=== PATIENT | male | born 1945 | race Caucasian/White ===

== ENCOUNTER 2021-06-23 08:06 | Outpatient (CLI) | payer MEDICARE, OTHER ==
[2021-06-23 10:18] LABS: Hemoglobin 14.1 g/dL (13.5-17.5); Mean Corpuscular HGB CONC 32.5 g/dL (32.0-36.0); Mean Corpuscular Hemoglobin 27.4 pg (27.0-33.0); Mean Corpuscular Volume 84.3 fl (81.2-95.1); Mean Platelet Volume 9.9 fl (7.4-10.4); Platelet Count 275 10x3/uL (150-450); RBC Distribution Width 14.8 % (11.5-14.5); Red Blood Cell (RBC) Count 5.15 10x6/uL (4.32-5.72)
[2021-06-23 10:36] LABS: PTT 26.9 sec (22.0-33.0); Prothrombin Time 11.1 sec (9.5-12.1)
[2021-06-23 10:38] LABS: Anion Gap 14 mmol/L (10-20); BUN (Urea Nitrogen) 21 mg/dL (8.4-25.7); Calc. Creatinine Clearance 0 mL/min (70-130); Calcium 9.9 mg/dL (7.8-10.44); Carbon Dioxide 28 mmol/L (23-31); Chloride 101 mmol/L (98-107); Glucose 85 mg/dL (83-110); Potassium 4.6 mmol/L (3.5-5.1); Sodium 138 mmol/L (136-145)
[2021-06-24] LABS: SARS-CoV-2 PCR by NAA Not Detected (NotDetected)
== END 2021-06-23 08:07 | disposition home or self-care (01) ==
LOC: LABBT 08:06
PROVIDERS: ATTEND Surgery
DX: Z01.818 Encounter for other preprocedural examination (principal); Z20.822 Contact with and (suspected) exposure to COVID-19
CPT/HCPCS: 80048; 85027; 85610; 85730; 93005; U0003; U0005; 93010

== ENCOUNTER 2021-06-27 05:44 | Inpatient (IN) | payer OTHER ==
[2021-06-27] MEDS ORDERED: Thrombin 5000 UNITS/5 ML VIAL ONE ×2 (06:48→09:36)
[2021-06-27] MEDS ORDERED: Clindamycin/D5W 900 mg/50 ml Premix Bag ONE (07:21)
[2021-06-27] MEDS ORDERED: Levofloxacin 500 mg/D5W 100 ml Premix Bag ONE (07:21)
[2021-06-27] MEDS ORDERED: Fentanyl 100 MCG/2 ML VIAL ONE ×3 (07:31→11:27)
[2021-06-27] MEDS ORDERED: Glycopyrrolate 0.2 MG/ML 5 ML SYRINGE ONE (07:58)
[2021-06-27] MEDS ORDERED: Dexamethasone 20 MG/5 ML VIAL ONE (07:58)
[2021-06-27] MEDS ORDERED: Lidocaine 1% PF 5 ML VIAL ONE (07:58)
[2021-06-27] MEDS ORDERED: ePHEDrine 50 MG/ML VIAL ONE (07:58)
[2021-06-27] MEDS ORDERED: PROPOFOL 200 MG/20 ML VIAL ONE (07:58)
[2021-06-27] MEDS ORDERED: Rocuronium Bromide 10 MG/ML (10ML VIAL) ONE (07:58)
[2021-06-27] MEDS ORDERED: Ondansetron PF 4 MG/2 ML Vial ONE (07:58)
[2021-06-27] MEDS ORDERED: HYDROmorphone 2 MG/ML VIAL SLOW IVP PRN (08:47)
[2021-06-27] MEDS ORDERED: Promethazine HCl 25 MG/ML VIAL IM PRN (08:47)
[2021-06-27] MEDS ORDERED: Ondansetron HCl/PF 4 MG/2 ML Vial IVP PRN (08:47)
[2021-06-27] MEDS ORDERED: Meperidine HCl/PF 25 MG/ML VIAL SLOW IVP PRN (08:47)
[2021-06-27] MEDS ORDERED: Promethazine HCl 25 MG/ML VIAL IVPB PRN (08:47)
[2021-06-27] MEDS ORDERED: Midazolam HCl 2 mg/2 ml Vial ONE (12:36)
[2021-06-27] MEDS ORDERED: tiZANidine HCl 4 MG TAB ONE (12:46)
[2021-06-27] MEDS ORDERED: HYDROcodone/Acetaminophen 5/325 mg Tablet ONE (13:08)
[2021-06-27] MEDS ORDERED: Morphine 2 MG/ML VIAL SLOW IVP PRN (15:25)
[2021-06-27] MEDS ORDERED: traMADol HCl 50 MG TAB PO PRN (15:25)
[2021-06-27] MEDS ORDERED: Acetaminophen 325 MG TAB PO PRN (15:25)
[2021-06-27] MEDS ORDERED: Mag-Al 1200 mg/1200 mg/30 ML UDCUP PO PRN (15:25)
[2021-06-27] MEDS ORDERED: tiZANidine HCl 4 MG TAB PO PRN (15:25)
[2021-06-27] MEDS ORDERED: Promethazine HCl 12.5 MG in Sodium Chloride 0.9% 50 ML IVPB PRN (15:32)
[2021-06-27] MEDS ORDERED: Diazepam 10 MG/2 ML SYRINGE IVP SCH ×2 (15:45→19:00)
[2021-06-27] MEDS ORDERED: Ketorolac Tromethamine 30 MG/ML VIAL IVP SCH (15:45)
[2021-06-27] MEDS ORDERED: Dexamethasone 4 mg/ml Vial SLOW IVP SCH (16:10)
[2021-06-27] MEDS ORDERED: Dexamethasone 4 mg/ml Vial ONE (16:22)
[2021-06-27] MEDS ORDERED: Ketorolac Tromethamine 30 MG/ML VIAL ONE (17:02)
[2021-06-27] MEDS ORDERED: Diazepam 5 MG TAB ONE (17:25)
[2021-06-27] MEDS: Sodium Chloride 0.9% 1,000 ML IV SCH (19:38)
[2021-06-27] MEDS: Clindamycin/D5W 900 MG in Premix Bag 1 BAG IVPB SCH (20:09)
[2021-06-27] MEDS ORDERED: Zolpidem Tartrate 5 MG TAB PO SCH (23:30)
[2021-06-28] MEDS: Diazepam 5 MG TAB PO PRN ×3 (00:55→21:39)
[2021-06-28] MEDS: HYDROcodone/Acetaminophen 7.5/325 mg Tablet PO PRN ×4 (02:21→21:39)
[2021-06-28] MEDS: Clindamycin/D5W 900 MG in Premix Bag 1 BAG IVPB SCH (04:29)
[2021-06-28] MEDS: Sodium Chloride 0.9% 1,000 ML IV SCH ×2 (06:33→19:31)
[2021-06-28] MEDS: Hydrochlorothiazide 25 MG TAB PO SCH (08:33)
[2021-06-28] MEDS: Atorvastatin Calcium 20 MG TAB PO SCH (08:33)
[2021-06-28] MEDS: Losartan 25 MG TAB PO SCH (08:33)
[2021-06-28] MEDS: Ketorolac Tromethamine 30 MG/ML VIAL IVP PRN ×2 (08:34→21:39)
[2021-06-28] MEDS: predniSONE 20 MG TAB PO SCH (08:39)
[2021-06-28] MEDS: Morphine 2 MG/ML VIAL SLOW IVP PRN (19:23)
[2021-06-29] MEDS: Morphine 2 MG/ML VIAL SLOW IVP PRN ×5 (02:59→23:00)
[2021-06-29] MEDS: Ketorolac Tromethamine 30 MG/ML VIAL IVP PRN ×3 (04:04→20:06)
[2021-06-29] MEDS: HYDROcodone/Acetaminophen 7.5/325 mg Tablet PO PRN ×3 (04:04→20:05)
[2021-06-29] MEDS: Diazepam 5 MG TAB PO PRN ×3 (04:05→20:04)
[2021-06-29] MEDS: Hydrochlorothiazide 25 MG TAB PO SCH (09:10)
[2021-06-29] MEDS: Atorvastatin Calcium 20 MG TAB PO SCH (09:10)
[2021-06-29] MEDS: Losartan 25 MG TAB PO SCH (09:10)
[2021-06-29] MEDS: Docusate 100 MG CAP PO SCH ×2 (09:10→20:05)
[2021-06-29] MEDS: Sodium Chloride 0.9% 1,000 ML IV SCH ×2 (09:11→21:32)
[2021-06-29] MEDS: Acetaminophen/Codeine 30-300mg Tablet PO PRN (12:29)
[2021-06-29] MEDS: Dexamethasone 4 MG TAB PO SCH ×2 (16:00→20:06)
[2021-06-30] MEDS: Morphine 2 MG/ML VIAL SLOW IVP PRN ×6 (00:08→23:14)
[2021-06-30] MEDS: Acetaminophen/Codeine 30-300mg Tablet PO PRN ×2 (00:19→04:04)
[2021-06-30] MEDS: HYDROcodone/Acetaminophen 7.5/325 mg Tablet PO PRN ×2 (02:03→07:52)
[2021-06-30] MEDS: Dexamethasone 4 MG TAB PO SCH ×2 (02:03→07:52)
[2021-06-30] MEDS: Diazepam 5 MG TAB PO PRN ×4 (04:05→21:34)
[2021-06-30] MEDS: Hydrochlorothiazide 25 MG TAB PO SCH (07:51)
[2021-06-30] MEDS: Atorvastatin Calcium 20 MG TAB PO SCH (07:51)
[2021-06-30] MEDS: Losartan 25 MG TAB PO SCH (07:51)
[2021-06-30] MEDS: Docusate 100 MG CAP PO SCH ×2 (07:52→21:34)
[2021-06-30] MEDS: predniSONE 20 MG TAB PO SCH (09:48)
[2021-06-30] MEDS ORDERED: HYDROcodone/Acetaminophen 10/325 mg Tablet PO PRN (11:08)
[2021-06-30] MEDS ORDERED: Polyethylene Glycol 3350 17 GM Packet PO PRN (11:08)
[2021-06-30] MEDS ORDERED: fentaNYL 50 mcg/hour Patch TD SCH (11:15)
[2021-06-30] MEDS: HYDROcodone/Acetaminophen 10/325 mg Tablet PO PRN ×2 (13:07→18:51)
[2021-06-30] MEDS: Sodium Chloride 0.9% 1,000 ML IV SCH (13:49)
[2021-06-30] MEDS: Dexamethasone 1 MG TAB PO SCH ×2 (14:46→21:34)
[2021-06-30] MEDS ORDERED: Labetalol HCl 100 MG/20 ML VIAL SLOW IVP PRN (22:06)
[2021-06-30] MEDS: hydrALAZINE 20 MG/ML VIAL SLOW IVP PRN (22:10)
[2021-06-30] MEDS ORDERED: diphenhydrAMINE 50 MG/ML VIAL IM/IV PRN (23:45)
[2021-06-30] MEDS ORDERED: Ondansetron PF 4 MG/2 ML Vial IVP PRN (23:45)
[2021-06-30] MEDS ORDERED: Zolpidem Tartrate 5 MG TAB PO PRN (23:45)
[2021-06-30] MEDS ORDERED: diphenhydrAMINE 25 MG CAP PO PRN (23:45)
[2021-06-30] MEDS ORDERED: Promethazine HCl 25 MG/ML VIAL IM PRN (23:45)
[2021-06-30] MEDS ORDERED: Naloxone HCl 0.4 mg/ml Vial IV PRN (23:45)
[2021-07-01] MEDS: HYDROmorphone 10 MG in Sodium Chloride 0.9% 95 ML IVPB PRN ×2 (00:34→20:12)
[2021-07-01] MEDS: Sodium Chloride 0.9% 1,000 ML IV SCH ×2 (02:45→18:53)
[2021-07-01] MEDS: Dexamethasone 1 MG TAB PO SCH ×4 (03:44→20:02)
[2021-07-01] MEDS ORDERED: Bisacodyl 10 MG SUPP PR PRN (07:25)
[2021-07-01] MEDS: Hydrochlorothiazide 25 MG TAB PO SCH (08:59)
[2021-07-01] MEDS: Pregabalin 75 MG CAP PO SCH ×2 (09:00→20:02)
[2021-07-01] MEDS: Losartan 25 MG TAB PO SCH (09:00)
[2021-07-01] MEDS: Atorvastatin Calcium 20 MG TAB PO SCH (09:00)
[2021-07-01] MEDS: Docusate 100 MG CAP PO SCH ×2 (09:01→20:02)
[2021-07-01] MEDS: Polyethylene Glycol 3350 17 GM Packet PO SCH (09:01)
[2021-07-01] MEDS: hydrALAZINE 20 MG/ML VIAL SLOW IVP PRN ×2 (12:23→20:03)
[2021-07-01] MEDS: Diazepam 5 MG TAB PO PRN (22:05)
[2021-07-02] MEDS: Sodium Chloride 0.9% 1,000 ML IV SCH ×2 (02:29→17:24)
[2021-07-02] MEDS: Dexamethasone 1 MG TAB PO SCH ×4 (02:46→20:54)
[2021-07-02] MEDS: hydrALAZINE 20 MG/ML VIAL SLOW IVP PRN (04:07)
[2021-07-02] MEDS: Hydrochlorothiazide 25 MG TAB PO SCH (08:23)
[2021-07-02] MEDS: Losartan 25 MG TAB PO SCH (08:23)
[2021-07-02] MEDS: Atorvastatin Calcium 20 MG TAB PO SCH (08:23)
[2021-07-02] MEDS: Pregabalin 75 MG CAP PO SCH ×2 (08:24→20:55)
[2021-07-02] MEDS: Docusate 100 MG CAP PO SCH ×2 (08:25→20:54)
[2021-07-02] MEDS: Polyethylene Glycol 3350 17 GM Packet PO SCH (08:25)
[2021-07-02] MEDS: predniSONE 20 MG TAB PO SCH (14:40)
[2021-07-02] MEDS: Diazepam 5 MG TAB PO PRN (21:58)
[2021-07-03] MEDS: hydrALAZINE 20 MG/ML VIAL SLOW IVP PRN (00:29)
[2021-07-03] MEDS: Dexamethasone 1 MG TAB PO SCH ×2 (03:15→09:45)
[2021-07-03] MEDS: Sodium Chloride 0.9% 1,000 ML IV SCH ×2 (04:30→17:50)
[2021-07-03] MEDS ORDERED: HYDROcodone/Acetaminophen 7.5/325 mg Tablet PO PRN (09:41)
[2021-07-03] MEDS ORDERED: Morphine 2 MG/ML VIAL SLOW IVP PRN (09:41)
[2021-07-03] MEDS: Atorvastatin Calcium 20 MG TAB PO SCH (09:44)
[2021-07-03] MEDS: Losartan 25 MG TAB PO SCH (09:44)
[2021-07-03] MEDS: Hydrochlorothiazide 25 MG TAB PO SCH (09:44)
[2021-07-03] MEDS: Pregabalin 75 MG CAP PO SCH ×2 (09:45→20:52)
[2021-07-03] MEDS: Docusate 100 MG CAP PO SCH ×2 (09:46→20:53)
[2021-07-03] MEDS: Polyethylene Glycol 3350 17 GM Packet PO SCH (09:47)
[2021-07-03] MEDS: predniSONE 20 MG TAB PO SCH (09:47)
[2021-07-03] MEDS: HYDROcodone/Acetaminophen 7.5/325 mg Tablet PO PRN (23:05)
[2021-07-03] MEDS: Diazepam 5 MG TAB PO PRN (23:05)
[2021-07-04] MEDS: Diazepam 5 MG TAB PO PRN ×2 (03:51→21:57)
[2021-07-04] MEDS: HYDROcodone/Acetaminophen 7.5/325 mg Tablet PO PRN ×4 (03:51→21:57)
[2021-07-04] MEDS: Sodium Chloride 0.9% 1,000 ML IV SCH ×2 (06:55→22:03)
[2021-07-04] MEDS: Losartan 25 MG TAB PO SCH (08:57)
[2021-07-04] MEDS: Atorvastatin Calcium 20 MG TAB PO SCH (08:57)
[2021-07-04] MEDS: Hydrochlorothiazide 25 MG TAB PO SCH (08:57)
[2021-07-04] MEDS: Pregabalin 75 MG CAP PO SCH ×2 (08:57→20:27)
[2021-07-04] MEDS: Polyethylene Glycol 3350 17 GM Packet PO SCH (08:58)
[2021-07-04] MEDS: Docusate 100 MG CAP PO SCH ×2 (08:58→20:27)
[2021-07-04] MEDS ORDERED: fentaNYL 50 mcg/hour Patch TD SCH (11:00)
[2021-07-04] MEDS ORDERED: Morphine 2 MG/ML VIAL SLOW IVP PRN (11:03)
[2021-07-05] MEDS: Hydrochlorothiazide 25 MG TAB PO SCH (09:04)
[2021-07-05] MEDS: Docusate 100 MG CAP PO SCH (09:04)
[2021-07-05] MEDS: Atorvastatin Calcium 20 MG TAB PO SCH (09:04)
[2021-07-05] MEDS: Losartan 25 MG TAB PO SCH (09:04)
[2021-07-05] MEDS: Pregabalin 75 MG CAP PO SCH (09:05)
[2021-07-05] MEDS: Polyethylene Glycol 3350 17 GM Packet PO SCH (09:06)
[2021-07-05] MEDS: predniSONE 20 MG TAB PO SCH (09:15)
[2021-07-05] MEDS: HYDROcodone/Acetaminophen 7.5/325 mg Tablet PO PRN ×2 (09:15→13:24)
[2021-07-05 12:24] VITALS: BP 146/86; TEMP 98
== END 2021-07-05 13:44 | disposition home or self-care (01) | DRG 520 ==
LOC: SDC 05:44 → SURG A 15:25 → OBSVTOIN 06-29 08:28
PROVIDERS: ADMIT Surgery; ATTEND Surgery
PROC: 01NB0ZZ Release Lumbar Nerve, Open Approach (ICD-10-PCS; principal; 2021-06-29)
PROC: 0SB20ZZ Excision of Lumbar Vertebral Disc, Open Approach (ICD-10-PCS; 2021-06-29)
DX: M51.16 Intervertebral disc disorders with radiculopathy, lumbar region (principal); M48.062 Spinal stenosis, lumbar region with neurogenic claudication; M43.16 Spondylolisthesis, lumbar region; Z20.822 Contact with and (suspected) exposure to COVID-19; K64.8 Other hemorrhoids; K57.90 Diverticulosis of intestine, part unspecified, without perforation or abscess without bleeding; I10 Essential (primary) hypertension; E78.5 Hyperlipidemia, unspecified; E66.9 Obesity, unspecified; Z88.0 Allergy status to penicillin; Z68.38 Body mass index [BMI] 38.0-38.9, adult; Z79.52 Long term (current) use of systemic steroids; Z79.82 Long term (current) use of aspirin; Z79.899 Other long term (current) drug therapy
CPT/HCPCS: 74176; 76000; 93970; 94760; 96365; 96366; 96375; 96376; G0378; J0360; J1100; J1170; J1885; J1956; J2250; J2270; J2405; J2704; J3010; J3360; J3370; J3490; J7512; J8540

== ENCOUNTER 2022-06-25 09:21 | Outpatient (CLI) | payer BC | END 2022-06-25 09:22 | disposition home or self-care (01) | LOC: SCSRAD 09:21 | PROVIDERS: ATTEND Specialist | DX: M51.16 Intervertebral disc disorders with radiculopathy, lumbar region (principal) | CPT/HCPCS: 72120 ==

== ENCOUNTER 2022-07-05 14:47 | Outpatient (CLI) | payer BC ==
[2022-07-05 16:46] LABS: Hemoglobin 14.9 g/dL (13.5-17.5); Mean Corpuscular HGB CONC 32.5 g/dL (32.0-36.0); Mean Corpuscular Hemoglobin 26.1 pg (27.0-33.0); Mean Corpuscular Volume 80.4 fl (81.2-95.1); Mean Platelet Volume 9.7 fl (7.4-10.4); Platelet Count 320 10x3/uL (150-450); RBC Distribution Width 16.1 % (11.5-14.5); White Blood Cell (WBC) Count 11.3 10x3/uL (3.5-10.5)
[2022-07-05 17:01] LABS: Anion Gap 15 mmol/L (10-20); BUN (Urea Nitrogen) 23 mg/dL (8.4-25.7); Calc. Creatinine Clearance 0 mL/min (70-130); Calcium 9.8 mg/dL (7.8-10.44); Carbon Dioxide 27 mmol/L (23-31); Chloride 97 mmol/L (98-107); Estimated GFR 78; Glucose 112 mg/dL (83-110); Sodium 134 mmol/L (136-145)
[2022-07-05 17:03] LABS: PTT 27.8 sec (22.0-33.0); Prothrombin Time 10.8 sec (9.5-12.1)
== END 2022-07-05 14:48 | disposition home or self-care (01) ==
LOC: LABBT 14:47
PROVIDERS: ATTEND Surgery
DX: Z01.818 Encounter for other preprocedural examination (principal); M51.16 Intervertebral disc disorders with radiculopathy, lumbar region; Z20.822 Contact with and (suspected) exposure to COVID-19
CPT/HCPCS: 80048; 85027; 85610; 85730; 87811; 93005; 93010

== ENCOUNTER 2022-07-06 07:55 | Inpatient (IN) | payer BC, MEDICARE ==
[2022-07-05 14:28] VITALS: BMI 37.4
[2022-07-06] MEDS ORDERED: Thrombin 5000 UNITS/5 ML VIAL ONE (08:41)
[2022-07-06] MEDS ORDERED: Levofloxacin 500 mg/D5W 100 ml Premix Bag ONE (09:00)
[2022-07-06] MEDS ORDERED: HYDROmorphone 0.5 MG/0.5 ML SYRINGE ONE (09:44)
[2022-07-06] MEDS ORDERED: Dexmedetomidine 200 MCG/2 ML VIAL ONE (09:45)
[2022-07-06] MEDS ORDERED: fentaNYL Citrate/PF 100 MCG/2 ML SYRINGE ONE (09:45)
[2022-07-06] MEDS ORDERED: Ketamine 50 MG/ML (10ML VIAL) ONE (09:45)
[2022-07-06] MEDS ORDERED: Clindamycin/D5W 900 mg/50 ml Premix Bag ONE (09:53)
[2022-07-06] MEDS ORDERED: Ketorolac Tromethamine 30 MG/ML VIAL IVP PRN (09:58)
[2022-07-06] MEDS ORDERED: traMADol HCl 50 MG TAB PO PRN (09:58)
[2022-07-06] MEDS ORDERED: Ondansetron PF 4 MG/2 ML Vial IVP PRN (09:58)
[2022-07-06] MEDS ORDERED: diphenhydrAMINE 25 MG CAP PO PRN (09:58)
[2022-07-06] MEDS ORDERED: HYDROcodone/Acetaminophen 7.5/325 mg Tablet PO PRN ×2 (09:58)
[2022-07-06] MEDS ORDERED: Acetaminophen 325 MG TAB PO PRN (09:58)
[2022-07-06] MEDS ORDERED: Fentanyl 100 MCG/2 ML VIAL SLOW IVP PRN (10:07)
[2022-07-06] MEDS ORDERED: HYDROcodone/Acetaminophen 10/325 mg Tablet PO PRN (10:07)
[2022-07-06] MEDS ORDERED: Promethazine HCl 12.5 MG in Sodium Chloride 0.9% 50 ML IVPB PRN (10:09)
[2022-07-06] MEDS ORDERED: PROPOFOL 200 MG/20 ML VIAL ONE (10:10)
[2022-07-06] MEDS ORDERED: ePHEDrine 50 MG/ML VIAL ONE (10:10)
[2022-07-06] MEDS ORDERED: Lidocaine 1% MPF 2 ML VIAL ONE (10:10)
[2022-07-06] MEDS ORDERED: Rocuronium Bromide 10 MG/ML (10ML VIAL) ONE (10:10)
[2022-07-06] MEDS ORDERED: Ondansetron PF 4 MG/2 ML Vial ONE (10:10)
[2022-07-06] MEDS ORDERED: hydrALAZINE 20 MG/ML VIAL SLOW IVP PRN (10:10)
[2022-07-06] MEDS ORDERED: predniSONE 20 MG TAB PO SCH (10:15)
[2022-07-06] MEDS ORDERED: SUGAMMADEX SODIUM 200 MG/2 ML VIAL ONE (12:15)
[2022-07-06] MEDS ORDERED: Ondansetron HCl/PF 4 MG/2 ML Vial IVP PRN (12:50)
[2022-07-06] MEDS ORDERED: Promethazine HCl 25 MG/ML VIAL IVPB PRN (12:50)
[2022-07-06] MEDS ORDERED: Promethazine HCl 25 MG/ML VIAL IM PRN (12:50)
[2022-07-06] MEDS ORDERED: Fentanyl 100 MCG/2 ML VIAL ONE ×2 (12:57→13:22)
[2022-07-06] MEDS: Pregabalin 50 MG CAP PO SCH ×2 (14:54→20:50)
[2022-07-06] MEDS: Sodium Chloride 0.9% 1,000 ML IV SCH (14:58)
[2022-07-06] MEDS: Clindamycin/D5W 900 MG in Premix Bag 1 BAG IVPB SCH (18:35)
[2022-07-06] MEDS: HYDROcodone/Acetaminophen 10/325 mg Tablet PO PRN (20:49)
[2022-07-07] MEDS: Sodium Chloride 0.9% 1,000 ML IV SCH ×2 (01:26→12:16)
[2022-07-07] MEDS: Clindamycin/D5W 900 MG in Premix Bag 1 BAG IVPB SCH (01:59)
[2022-07-07] MEDS: Pregabalin 50 MG CAP PO SCH ×3 (08:49→19:55)
[2022-07-07] MEDS: Hydrochlorothiazide 25 MG TAB PO SCH (08:50)
[2022-07-07] MEDS: Atorvastatin Calcium 20 MG TAB PO SCH (08:50)
[2022-07-07] MEDS: HYDROcodone/Acetaminophen 10/325 mg Tablet PO PRN ×3 (08:50→18:06)
[2022-07-07] MEDS: Losartan 25 MG TAB PO SCH (08:50)
[2022-07-07] MEDS ORDERED: Non-Formulary Item 1 EACH (Losartan Potassium [Losartan Potassium] 100 MG Tablet) PO SCH (09:00)
[2022-07-07] MEDS ORDERED: Diazepam 5 MG TAB PO PRN (10:37)
[2022-07-07] MEDS: tiZANidine HCl 4 MG TAB PO PRN ×2 (12:15→19:56)
[2022-07-08] MEDS: Sodium Chloride 0.9% 1,000 ML IV SCH (02:06)
[2022-07-08] MEDS: tiZANidine HCl 4 MG TAB PO PRN (06:01)
[2022-07-08] MEDS: HYDROcodone/Acetaminophen 10/325 mg Tablet PO PRN (06:02)
[2022-07-08] MEDS: Pregabalin 50 MG CAP PO SCH (08:08)
[2022-07-08] MEDS: Losartan 25 MG TAB PO SCH (08:08)
[2022-07-08] MEDS: Atorvastatin Calcium 20 MG TAB PO SCH (08:08)
[2022-07-08] MEDS: Hydrochlorothiazide 25 MG TAB PO SCH (08:09)
[2022-07-08 11:47] VITALS: BP 135/75; TEMP 98.1
== END 2022-07-08 11:42 | disposition home or self-care (01) | DRG 520 ==
LOC: SDC 07:55 → SURG A 13:50 → OBSVTOIN 07-07 10:38
PROVIDERS: ADMIT Surgery; ATTEND Surgery
PROC: 0SB20ZZ Excision of Lumbar Vertebral Disc, Open Approach (ICD-10-PCS; principal; 2022-07-06)
DX: M51.26 Other intervertebral disc displacement, lumbar region (principal); M51.16 Intervertebral disc disorders with radiculopathy, lumbar region
CPT/HCPCS: 36415; 76000; 80048; 85027; 85610; 85730; 86850; 86900; 86901; 87811; 93005; 93010; 96365; 96375; 96376; G0378; J1170; J1885; J1956; J2405; J2704; J3010; J3370; J3490; J7050

== ENCOUNTER 2024-03-27 13:56 | Outpatient (CLI) | payer BC | END 2024-03-27 13:57 | disposition home or self-care (01) | LOC: BICULT 13:56 | PROVIDERS: ATTEND Nurse Practitioner Family | DX: I10 Essential (primary) hypertension (principal) | CPT/HCPCS: 76770 ==